=== PATIENT | female | born 1970 | race Hispanic/Latino ===

== ENCOUNTER 2023-01-04 07:05 | Inpatient (IN) | payer OTHER, SELFPAY ==
[2023-01-04 07:50] LABS: #Monocytes 0.7 thou/uL (0.11-0.59); #Neutrophils 11.7 thou/uL (1.40-6.50); %Basophils 0.1 % (0.0-1.0); %Lymphocytes 6.4 % (21.0-51.0); %Monocytes 4.9 % (0.0-10.0); %Neutrophils 87.9 % (42.0-75.0); Hemoglobin 11.5 g/dL (12.0-16.0); Mean Corpuscular HGB CONC 30.7 g/dL (32.0-36.0); Mean Corpuscular Hemoglobin 30.8 pg (27.0-31.0); Mean Corpuscular Volume 100.5 fl (78.0-98.0); Mean Platelet Volume 10.2 fL (7.4-10.4); Platelet Count 232 10x3/uL (130-400); RBC Distribution Width 14.3 % (11.5-14.5); Red Blood Cell (RBC) Count 3.73 mill/uL (4.20-5.40); White Blood Cell (WBC) Count 13.4 10x3/uL (4.8-10.8)
[2023-01-04 08:32] LABS: ALT (SGPT) 35 U/L (8-55); AST (SGOT) 39 U/L (5-34); Albumin 3.3 g/dL (3.5-5.0); Alkaline Phosphatase 85 U/L (40-110); Anion Gap 14 mmol/L (10-20); BUN (Urea Nitrogen) 47 mg/dL (9.8-20.1); Bilirubin, Total 0.3 mg/dL (0.2-1.2); CK (CPK) 82 U/L (29-168); Calc. Creatinine Clearance 0 mL/min (70-130); Calcium 8.3 mg/dL (7.8-10.44); Carbon Dioxide 15 mmol/L (22-29); Chloride 115 mmol/L (98-107); Estimated GFR 25; Globulin 4.7 g/dL (2.4-3.5); Glucose 141 mg/dL (70-105); Lipase 68 U/L (8-78); Potassium 4.4 mmol/L (3.5-5.1); Sodium 140 mmol/L (136-145)
[2023-01-04 09:24] LABS: Base Excess -11.4 mEq/L (-2.0 to +3.0); Calcium, Ionized (venous) 1.06 mmol/L (1.16-1.32); Chloride (VBG) 115 mmol/L (98-106); Hematocrit-VBG 37 % (36.0-47.0); Hemoglobin (Hb) 12.7 g/dL (11.7-16.0); Potassium (VBG) 4.47 mmol/L (3.70-5.30); Sodium 139.3 mmol/L (133-146); pH (venous) 7.318 (7.32-7.43)
[2023-01-04 09:26] LABS: Actual Bicarbonate (HCO3v) 13.1 mEq/L (22-28)
[2023-01-04 09:40] LABS: SARS-CoV-2 NAA Rapid Test Not Detected (NotDetected)
[2023-01-04] MEDS ORDERED: Glucagon 1 MG/ML KIT IM PRN (10:28)
[2023-01-04] MEDS ORDERED: Acetaminophen 325 MG TAB PO PRN (10:28)
[2023-01-04] MEDS ORDERED: Ondansetron PF 4 MG/2 ML Vial IVP PRN (10:28)
[2023-01-04] MEDS ORDERED: Dextrose 50% Abboject 50 ML SYRINGE SLOW IVP PRN (10:28)
[2023-01-04] MEDS ORDERED: Dextrose 5% in Water 1,000 ML IV PRN (10:28)
[2023-01-04 12:33] VITALS: BMI 34.5
[2023-01-04] MEDS: Sodium Chloride 0.9% 1,000 ML IV SCH (13:58)
[2023-01-04] MEDS: HumaLOG 300 UNITS/3 ML VIAL SC PRN (18:29)
[2023-01-04] MEDS: Gabapentin 300 MG CAP PO SCH (21:11)
[2023-01-04] MEDS: Atorvastatin Calcium 40 MG TAB PO SCH (21:11)
[2023-01-05] MEDS: Sodium Chloride 0.9% 1,000 ML IV SCH ×5 (01:34→23:50)
[2023-01-05 08:05] LABS: #Eosinphils 0.1 thou/uL (0.0-0.7); #Monocytes 1.1 thou/uL (0.11-0.59); #Neutrophils 7.5 thou/uL (1.40-6.50); %Basophils 0.3 % (0.0-1.0); %Eosinophils 0.6 % (0.0-10.0); %Lymphocytes 19.5 % (21.0-51.0); %Monocytes 9.8 % (0.0-10.0); %Neutrophils 69.2 % (42.0-75.0); Hemoglobin 9.5 g/dL (12.0-16.0); Mean Corpuscular HGB CONC 31.4 g/dL (32.0-36.0); Mean Corpuscular Hemoglobin 30.9 pg (27.0-31.0); Mean Corpuscular Volume 98.7 fl (78.0-98.0); Mean Platelet Volume 10.5 fL (7.4-10.4); Platelet Count 206 10x3/uL (130-400); RBC Distribution Width 14.6 % (11.5-14.5); Red Blood Cell (RBC) Count 3.07 mill/uL (4.20-5.40); White Blood Cell (WBC) Count 10.9 10x3/uL (4.8-10.8)
[2023-01-05 08:32] LABS: ALT (SGPT) 23 U/L (8-55); AST (SGOT) 24 U/L (5-34); Albumin 2.4 g/dL (3.5-5.0); Alkaline Phosphatase 55 U/L (40-110); Anion Gap 11 mmol/L (10-20); BUN (Urea Nitrogen) 31 mg/dL (9.8-20.1); Bilirubin, Total 0.2 mg/dL (0.2-1.2); Calc. Creatinine Clearance 53 mL/min (70-130); Calcium 7.8 mg/dL (7.8-10.44); Carbon Dioxide 13 mmol/L (22-29); Chloride 119 mmol/L (98-107); Estimated GFR 36; Globulin 3.8 g/dL (2.4-3.5); Glucose 118 mg/dL (70-105); Potassium 4.2 mmol/L (3.5-5.1); Protein, Total 6.2 g/dL (6.0-8.3); Sodium 139 mmol/L (136-145)
[2023-01-05] MEDS ORDERED: Aspirin Chewable 81 MG TAB PO SCH (09:00)
[2023-01-05] MEDS ORDERED: Atorvastatin Calcium 40 MG TAB PO SCH (09:00)
[2023-01-05] MEDS: Aspirin Chewable 81 MG TAB PO SCH (09:07)
[2023-01-05] MEDS: Verapamil 120 MG TAB PO SCH ×2 (09:08→21:36)
[2023-01-05] MEDS ORDERED: Sodium Bicarbonate Tab 325 MG TAB PO SCH (10:30)
[2023-01-05] MEDS: HumaLOG 300 UNITS/3 ML VIAL SC PRN (12:38)
[2023-01-05] MEDS ORDERED: cefTRIAXone\\ROCEPHIN 1 GM in Sodium Chloride 0.9% 100 ML IVPB SCH (15:15)
[2023-01-05] MEDS ORDERED: Gabapentin 300 MG CAP PO SCH (21:00)
[2023-01-05] MEDS: Gabapentin 300 MG CAP PO SCH (21:35)
[2023-01-05] MEDS: Atorvastatin Calcium 40 MG TAB PO SCH (21:36)
[2023-01-06] MEDS: Sodium Chloride 0.9% 1,000 ML IV SCH ×2 (02:53→08:51)
[2023-01-06 07:02] LABS: Anion Gap 10 mmol/L (10-20); BUN (Urea Nitrogen) 33 mg/dL (9.8-20.1); Calc. Creatinine Clearance 44 mL/min (70-130); Calcium 7.8 mg/dL (7.8-10.44); Carbon Dioxide 15 mmol/L (22-29); Chloride 120 mmol/L (98-107); Estimated GFR 29; Glucose 172 mg/dL (70-105); Potassium 4.8 mmol/L (3.5-5.1); Sodium 140 mmol/L (136-145)
[2023-01-06] MEDS: Verapamil 120 MG TAB PO SCH (08:50)
[2023-01-06] MEDS: Aspirin Chewable 81 MG TAB PO SCH (08:50)
[2023-01-06] MEDS ORDERED: Sodium Bicarbonate Tab 325 MG TAB PO SCH (09:00)
[2023-01-06] MEDS ORDERED: hydrALAZINE 25 MG TAB PO SCH (09:00)
[2023-01-06] MEDS: HumaLOG 300 UNITS/3 ML VIAL SC PRN (12:42)
[2023-01-06 13:25] VITALS: BP 148/75; TEMP 97.9
== END 2023-01-06 15:58 | disposition home or self-care (01) | DRG 683 ==
LOC: ERS 07:05 → T4-B 11:45
PROVIDERS: ADMIT Internal Medicine; ATTEND Internal Medicine
DX: N17.9 Acute kidney failure, unspecified (principal); E87.20 Acidosis, unspecified; N39.0 Urinary tract infection, site not specified; E11.649 Type 2 diabetes mellitus with hypoglycemia without coma; A08.4 Viral intestinal infection, unspecified; E86.0 Dehydration; I10 Essential (primary) hypertension; Z90.49 Acquired absence of other specified parts of digestive tract; Z20.822 Contact with and (suspected) exposure to COVID-19; Z79.82 Long term (current) use of aspirin; Z79.899 Other long term (current) drug therapy; Z79.84 Long term (current) use of oral hypoglycemic drugs; G89.29 Other chronic pain; M54.9 Dorsalgia, unspecified; E78.00 Pure hypercholesterolemia, unspecified
CPT/HCPCS: 36415; 36416; 71045; 80048; 80053; 82010; 82550; 82805; 83690; 83880; 84484; 85025; 87040; 87077; 87086; 87186; 93005; 96360; 96361; J0696; J1650; J1815; J3490; J7050

== ENCOUNTER 2024-06-28 09:17 | Emergency (ER) | payer OTHER ==
[2024-06-28] MEDS ORDERED: Gabapentin 100 MG CAP ONE (11:01)
== END 2024-06-28 12:21 | disposition home or self-care (01) ==
LOC: ERS 09:17
DX: M79.602 Pain in left arm (principal); I12.0 Hypertensive chronic kidney disease with stage 5 chronic kidney disease or end stage renal disease; N18.6 End stage renal disease; E11.22 Type 2 diabetes mellitus with diabetic chronic kidney disease; E78.00 Pure hypercholesterolemia, unspecified; Z79.84 Long term (current) use of oral hypoglycemic drugs; Z79.899 Other long term (current) drug therapy